=== PATIENT | female | born 2000 | race Caucasian/White ===

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

== ENCOUNTER 2019-05-12 13:43 | Emergency (ER) | payer MEDICAID, OTHER ==
--- OUTSIDE RECORDS SUMMARY | 2019-05-12 14:03 | XMS REPORT | Continuity of Care Document ---
:2000 External Reference #:[id number] Author Name Wander Alexander Care Team Providers Name Role Phone Radha Otero MD Primary Care Physician Unavailable Payers Date Identification Numbers Payment Provider Subscriber Policy Number: [id number] Camilo Mena Group Number: [id number] [address] PayID: [id number] [place] [address] Problems Active Problems Provider Date Nervus intermedius neuralgia Fer Maciel M.D. 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 Allergies, Adverse Reactions, Alerts Active Allergies Reaction Severity Comments Date Bactrim 04/24/2018 Inactive Allergies NKDA 07/07/2014 Medications Active Medications SIG Qnty Indications Ordering Provider Date Sumatriptan Succinate 1 tab twice a 9tabs G43.009 Fer Maciel, 2018 day max 2 days a M.D. 100mg Tablets week Lamotrigine 2 by mouth at 180tabs G50.0 Fer Maciel, 07/08/2014 25mg bedtime M.DSanchez Tablets Ibuprofen 2 tabs po prn Unknown 200mg Capsules Latasha Take One Tablet Unknown 0.15-30mg-mcg By Mouth Every Tablets Day History Medications Voltaren apply 2g to 100units T84.84xA Garry 08/21/2017 - 1% Gel affected area Irene Hale 04/23/2019 twice a day as needed Lidoderm apply strip to 3units T84.84xA Garry 08/15/2017 - 5% Patches incision daily Irene Hale 08/21/2017 Oxycodone HCL 1-2 tabs by 60tabs Garry 05/21/2017 - 5mg mouth every 4-6 Irene Hale 04/18/2018 Tablets hours as needed Nexplanon inserted Fer Marley 05/03/2017 - 68mg Irene Maciel 04/16/2018 Implant Oxycodone HCL 1-2 tabs po q4-6 60tabs Garry 10/18/2015 - 5mg hrs prn Irene Hale 01/18/2016 Tablets Carbamazepine 1 by mouth once 90units 350.1 Fer Marley 07/07/2014 - 100mg a day for 1 wk Irene Maciel 07/08/2014 Chewtabs then twice a day for 1 week then 1 three times a day Nuvaring insert 1 ring Unknown - vaginally every 07/03/2016 0.12-0.015mg/24HR 28 days leave in Ring place for 3 weeks, remove, and replace with a new ring after 7 day break for b Cleocin 1 [facility] Carlie Arreola - 100mg HAMZAH Jenkins 07/03/2016 Suppository Control Unknown - 08/14/2017 Vital Signs Date Vital Result Comment 04/24/2019 8:52am Weight 133.00 lb Heart Rate 60 /min BP Systolic Sitting 110 mmHg BP Diastolic Sitting 74 mmHg Respiratory Rate 24 /min no resp difficulties Pain Level 1 04/25/2018 8:50am Height 65 inches 5'5" Weight 125.00 lb Heart Rate 86 /min BP Systolic Sitting 114 mmHg BP Diastolic Sitting 68 mmHg Respiratory Rate 16 /min Pain Level 1 O2 % BldC Oximetry 98 % ra BMI (Body Mass Index) 20.8 kg/m2 Height Percentile 61 % Weight Percentile 4704/24/2018 12:09pm Height 65 inches 5'5" Weight 125.00 lb BP Systolic Sitting 104 mmHg BP Diastolic Sitting 60 mmHg Respiratory Rate 16 /min Pain Level 1 BMI (Body Mass Index) 20.8 kg/m2 Height Percentile 61 % Weight Percentile 47th 08/15/2017 11:55am Height 65 inches 5'5" Heart Rate 53 /min BP Systolic Sitting 108 mmHg BP Diastolic Sitting 68 mmHg Respiratory Rate 16 /min Pain Level 0 O2 % BldC Oximetry 98 % Blood Pressure Percentile 0 % Height Percentile 62 % 06/05/2017 10:18am Height 65 inches 5'5" Weight 125.00 lb BP Systolic 112 mmHg BP Diastolic 70 mmHg Respiratory Rate 18 /min Body Temperature 98.4 F Pain Level 0 BMI (Body Mass Index) 20.8 kg/m2 Blood Pressure Percentile 50 % Height Percentile 62 % Weight Percentile 5105/04/2017 9:06am Height 65 inches 5'5" Weight 125.00 lb Heart Rate 76 /min BP Systolic 122 mmHg BP Diastolic 79 mmHg Respiratory Rate 19 /min Body Temperature 97.5 F BMI (Body Mass Index) 20.8 kg/m2 Blood Pressure Percentile 83 % Height Percentile 62 % Weight Percentile 5205/03/2017 8:29am Height 65 inches 5'5" Weight 125.00 lb Heart Rate 58 /min BP Systolic Sitting 100 mmHg BP Diastolic Sitting 56 mmHg Respiratory Rate 20 /min Pain Level 5 O2 % BldC Oximetry 97 % BMI (Body Mass Index) 20.8 kg/m2 Blood Pressure Percentile 0 % Height Percentile 62 % Weight Percentile 52nd 07/04/2016 8:12am Height 65 inches 5'5" Weight 120.00 lb Heart Rate 66 /min BP Systolic 116 mmHg BP Diastolic 62 mmHg BMI (Body Mass Index) 20.0 kg/m2 Blood Pressure Percentile 63 % Height Percentile 63 % Weight Percentile 45th 04/10/2016 9:09am Height 65 inches 5'5" Weight 125.00 lb Heart Rate 56 /min BP Systolic Sitting 108 mmHg BP Diastolic Sitting 56 mmHg Respiratory Rate 16 /min BMI (Body Mass Index) 20.8 kg/m2 Blood Pressure Percentile 0 % Height Percentile 63 % Weight Percentile 56th 01/18/2016 9:04am Height 64 inches 5'4" Weight 120.00 lb Heart Rate 76 /min BMI (Body Mass Index) 20.6 kg/m2 Height Percentile 48 % Weight Percentile 48th 12/15/2015 1:22pm Height 64 inches 5'4" Weight 122.00 lb BMI (Body Mass Index) 20.9 kg/m2 Blood Pressure Percentile 0 % Height Percentile 48 % Weight Percentile 52nd 11/02/2015 10:51am Height 64 inches 5'4" Weight 122.00 lb Pain Level 3 BMI (Body Mass Index) 20.9 kg/m2 Height Percentile 49 % Weight Percentile 53rd 10/05/2015 8:48am Height 64 inches 5'4" Weight 122.00 lb Heart Rate 68 /min BP Systolic Sitting 110 mmHg BP Diastolic Sitting 68 mmHg BMI (Body Mass Index) 20.9 kg/m2 Blood Pressure Percentile 0 % Height Percentile 49 % Weight Percentile 53rd 08/17/2015 8:42am Heart Rate 70 /min BP Systolic Sitting 118 mmHg BP Diastolic Sitting 72 mmHg Blood Pressure Percentile 0 % 06/08/2015 9:34am Height 65 inches 5'5" Weight 105.00 lb Heart Rate 68 /min BP Systolic Sitting 118 mmHg BP Diastolic Sitting 70 mmHg BMI (Body Mass Index) 17.5 kg/m2 Blood Pressure Percentile 0 % Height Percentile 65 % Weight Percentile 05/20/2015 8:39am Height 65 inches 5'5" Weight 105.00 lb Heart Rate 60 /min BP Systolic Sitting 116 mmHg BP Diastolic Sitting 68 mmHg BMI (Body Mass Index) 17.5 kg/m2 Blood Pressure Percentile 0 % Height Percentile 65 % Weight Percentile 05/11/2015 8:27am Heart Rate 72 /min BP Systolic Sitting 118 mmHg BP Diastolic Sitting 76 mmHg Blood Pressure Percentile 0 % 04/27/2015 8:54am Heart Rate 70 /min BP Systolic Sitting 118 mmHg BP Diastolic Sitting 74 mmHg Blood Pressure Percentile 0 % 03/09/2015 11:24am Heart Rate 60 /min BP Systolic Sitting 98 mmHg BP Diastolic Sitting 62 mmHg Blood Pressure Percentile 0 % 02/23/2015 11:25am Heart Rate 76 /min BP Systolic Sitting 120 mmHg BP Diastolic Sitting 78 mmHg Blood Pressure Percentile 0 % 02/19/2015 8:24am Heart Rate 62 /min BP Systolic Sitting 104 mmHg BP Diastolic Sitting 76 mmHg Blood Pressure Percentile 0 % 01/08/2015 1:42pm Heart Rate 68 /min BP Systolic Sitting 100 mmHg BP Diastolic Sitting 68 mmHg Blood Pressure Percentile 0 % 12/25/2014 10:16am Height 65 inches 5'5" Heart Rate 58 /min BP Systolic Sitting 100 mmHg BP Diastolic Sitting 60 mmHg Blood Pressure Percentile 0 % Height Percentile 66 % 10/08/2014 1:00pm Height 65 inches 5'5" Heart Rate 54 /min BP Systolic Sitting 98 mmHg BP Diastolic Sitting 64 mmHg Blood Pressure Percentile 0 % Height Percentile 67 % 07/07/2014 1:24pm Height 65 inches 5'5" Weight 122.00 lb Heart Rate 56 /min BP Systolic Sitting 108 mmHg BP Diastolic Sitting 54 mmHg Respiratory Rate 16 /min BMI (Body Mass Index) 20.3 kg/m2 Blood Pressure Percentile 0 % Height Percentile 68 % Weight Percentile 61st 06/14/2012 3:06pm Height 64 inches 5'4" Weight 110.00 lb Heart Rate 72 /min BP Systolic 116 mmHg BP Diastolic 55 mmHg BMI (Body Mass Index) 18.9 kg/m2 Blood Pressure Percentile 73 % Height Percentile 74 % Weight Percentile 62nd Results Test Date Facility Test Result H/L Range Note Laboratory test 05/21/2017 [facility] Surgical SEE RESULT [address] [place] [address] [phone] Laboratory test 05/21/2017 [facility] (HCG) Negative N Negative [address] [place] [address] [phone] Laboratory test 10/18/2015 [facility] (HCG) Negative N Negative [address] Urine [place], [place] [id number] [phone] Laboratory test 10/17/2015 [facility] Cancellous SEE RESULTS 4, [address] Block BELO <[place] [address] NOTE> [phone] Semiten SEE RESULTS BELO <SEE NOTE> 6 1 SEE RESULT BELOW Name: SALTY MENA : [address]: Garry Hale MD Acct: [id number] Unit: [id number] AGE: 17 Location: OR Re05/21/17 SEX: F Status: DEP SDC SPEC: [id number] LENI: 05/21/17- [facility] DR: Garry Hale MD REQ: [id number] RECD: 05/21/17 STATUS: SOUT _ ORDERED: LEVEL 1 FINAL DIAGNOSIS Ankle, left, excision: Foreign body (orthopedic hardware) (Gross diagnosis). PRE-OPERATIVE DIAGNOSIS Painful hardware left ankle GROSS DESCRIPTION The specimen is received fresh labeled, Hardware Left Ankle/Foot, and consists of two green metallic elongated plates with multiple circular holes measuring 2.6 by up to 0.5 x 0.1 cm and 3.9 by up to 0.5 x 0.1 cm. The following inscriptions are identified, respectively: 131; [facility] [id number]. Received separately in the same container is a 6.5 by up to 0.7 cm silver metallic partially threaded Remy-headed screw. Also received are three green metallic threaded Remy-headed screws averaging 1.0 x 0.2 cm and five gold metallic threaded Remy-headed screws ranging from 1.2 x 0.2 cm to 2.1 x 0.2 cm the largest of which has been previously disrupted. Per established hospital medical staff protocol, no tissue is submitted. Gross only. Signed (signature on file) Estella Headley MD 1059 END OF REPORT * ML=Testing performed at Main Lab DEPARTMENT OF PATHOLOGY, [address] [place] [address] Johnathon Holliday M.D. Director [facility] # [id number] 2 If is still suspected, please repeat test after 48 to 72 hours. This test detects intact HCG only and is indicated for the early detection of . 3 If is still suspected, please repeat test after 48 to 72 hours. This test detects intact HCG only and is indicated for the early detection of . 4 SPRAIN OF OTHER LIGAMENT OF LEFT ANKLE, SEQUELA 5 SEE RESULTS BELOW [id number] CAN BLOCK TRANSFUSED 10/18/15711 6 SEE RESULTS BELOW [id number] SEMITEN TRANSFUSED 10/18/15711 Procedures Date Code Description Status 05/21/2017 Removal Implant Deep Wire,Screw Nail,John Or Plate Completed 05/21/2017 Removal Implant Deep Wire,Screw Nail,John Or Plate Completed 05/21/201742598 Removal Implant Deep Wire,Screw Nail,John Or Plate Completed 05/21/2017 Removal Implant Deep Wire,Screw Nail,John Or Plate Completed 05/03/2017 14677 Debridement Skin,& sq Tissue Completed 01/18/2016 81837 Rad Exam; Foot Limited Completed 11/30/2015 19696 Rad Exam; Foot Comp Completed 11/30/2015 44263 Walking Cast Completed 11/16/2015 40802 Short Leg Cast Completed 11/02/2015 28468 Short Leg Cast Completed 10/18/2015 14493 Repair Collateral Ligament Ankle, Secondary Completed 10/18/2015 51904 Repair Collateral Ligament Ankle, Secondary Completed 10/18/2015 46263 Osteotomy Calcaneus Lorie Or Juancho Type Procedure Completed 10/18/2015 24280 Osteotomy Calcaneus Lorie Or Juancho Type Procedure Completed 10/18/2015 53776 Osteotomy Tarsal Bones Completed 10/18/2015 34493 Osteotomy Tarsal Bones Completed 12/25/2014 85025 Rad Exam; Tib-Fib Completed 07/05/2012 82460 Rad Exam; Ankle Comp Completed 07/05/2012 05642 Short Leg Cast Completed 06/21/2012 57532 Short Leg Cast Completed 06/14/2012 32592 Short Leg Cast Completed 06/14/2012 54136 CLSD TX Distal Fib FX (Lateral Malleolus) w/o manipulation Completed Encounters Type Date Location Provider Dx Diagnosis Office Visit 04/25/2018 [place] Marley G50.0 Trigeminal 8:45a Neurologic Serv Of Irene Maciel neuralgia [facility] 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 internal AT [place] orthopedic prosth dev/tequila, incurtis M79.672 Pain in left foot Office Visit 05/03/2017 9:15a Orthopedic Carlos Nieto S93.601A Unspecified Services Of Shayla Saldaña MD sprain of right AT [place] foot, initial encounter S90.812A Abrasion, left foot, initial encounter Office Visit 05/03/2017 [place] G50.0 Trigeminal 8:30a Neurologic Serv Of Irene Maciel neuralgia [facility] Office Visit 07/04/2016 Orthopedic Services Garry M79.672 Pain in left 8:10a Of Shayla Hale M.D. foot Office Visit 04/10/2016 Neurohospitalist Fer Marley G50.0 Trigeminal 9:15a Clinic Irene Maciel neuralgia Office Visit 03/07/2016 Orthopedic Services Garry S93.492D Sprain of other 8:50a Of Shayla AT [place] Hale M.D. ligament of left ankle, subsequent encounter Office Visit 01/18/2016 Orthopedic Services Garry S93.492D Sprain of other 8:50a Of Shayla AT [place] Hale M.D. ligament of left ankle, subsequent encounter Office Visit 08/17/2015 Orthopedic Services Garry S93.492D Sprain of other 8:40a Of Shayla AT [place] Hale M.D. ligament of left ankle, subsequent encounter Office Visit 06/08/2015 Orthopedic Services Garry 845.09 Sprains & 9:40a Of Dental Mechanic AT [place] Hale M.D. Strains Ankle Other Office Visit 05/20/2015 [place]ash Leong.1 Neuralgia 8:45a Neurologic Serv Of Irene Maciel Trigeminal Dental Mechanic Office Visit 05/11/2015 Orthopedic Services Garry 845.00 Sprains & 8:20a Of Dental Mechanic AT [place]da Hale M.D. Strains Ankle Unspec Site Office Visit 04/27/2015 Orthopedic Services Garry 845.00 Sprains & 8:40a Of Dental Mechanic AT [place] Hale M.D. Strains Ankle Unspec Site 719.47 Pain Joint Ankle & Foot Office Visit 03/09/2015 11:20a Orthopedic Garry Hale 845.00 Sprains & Services Of Dental Mechanic AT [facility] Ankle [place] Unspec Site 719.47 Pain Joint Ankle & Foot Office Visit 02/23/2015 11:20a Orthopedic Garry Hale 845.00 [facility] V54.89 Aftercare, Orthopedic Other Office Visit 02/19/2015 8:30a Orthopedic Lilia Gonzalez 845.00 Sprains & Services Of Dental Mechanic AT .[facility] Ankle [place] Unspec Site 718.87 Derangement Joint Other Not Elsewhere Class Ankle & Foot Office Visit 01/08/2015 1:45p Orthopedic Lilia Gonzalez 845.00 Sprains & Services Of Dental Mechanic AT [facility] Ankle [place] Unspec Site 718.87 Derangement Joint Other Not Elsewhere Class Ankle & Foot Office Visit 12/25/2014 10:00a Orthopedic Lilia Gonzalez 845.00 Sprains & [facility] Unspec Site 719.47 Pain Joint Ankle & Foot Office Visit 10/08/2014 [place]ash Marley 350.1 Neuralgia 1:00p Neurologic Serv Of Irene Maciel Trigeminal Dental Mechanic Office Visit 07/07/2014 [place] Bhavin Leong.1 Neuralgia 1:00p Services Of Shayla Maciel M.D. Trigeminal Plan of Treatment Future Appointment(s):04/29/2020 8:30 am - Fer Maciel M.D. at [place]/ [place] Neurologic Serv Of [facility]04/24/2019 - Fer Maciel M.D.G50.0 Trigeminal qujlrfwvkK17.009 Migraine without aura, not intractable, without status migraNew Medication:Sumatriptan Succinate 100 mg - 1 tab twice a day max 2 days a week
[2019-05-12 14:24] VITALS: BP 119/63
--- NOTE | 2019-05-12 14:38 | UC ---
Ear Complaint HPI - HPI Summary HPI Summary: Pt presents with c/o right ear pain that began after swimming on 05/10/19. Pt states she woke this morning with right ear pain and tried to "clean her right ear" and had no improvement with pain. - History of Current Complaint Chief Complaint: UCEar Stated Complaint: RT EAR COMPLAINT Time Seen by Provider: 05/12/19 14:25 Hx Obtained From: Patient Hx Last Menstrual Period: 05/01/19 ?: No Onset/Duration: Sudden Onset, Lasting Hours, Still Present Severity Initially: Moderate Severity Currently: Moderate Pain Intensity: 6 Associated Signs/Symptoms: Positive: Hearing Loss - Allergies/Home Medications Allergies/Adverse Reactions: Allergies Allergy/AdvReac Type Severity Reaction Status Date / Time MS Latex [Latex] AdvReac Unknown Verified 05/12/19 14:18 Reaction Details PMH/Surg Hx/FS Hx/Imm Hx - Additional Past Medical History Additional PMH: reports hx of "ear problems" Previously Healthy: Yes - Surgical History Surgical History: Yes Surgery Procedure, Year, and Place: ear tubes X2. adnoids removed. left elbow surgery with pins and then removal of pins. 2015-left foot sx. - Family History Known Family History: Positive: Hypertension - Social History Occupation: Employed Full-time Lives: With Family Alcohol Use: Rare Substance Use Type: None Smoking Status (MU): Never Smoked Tobacco Have You Smoked in the Last Year: No - Immunization History Most Recent Influenza Vaccination: none Most Recent Pneumonia Vaccination: none Vaccination Up to Date: Yes Review of Systems All Other Systems Reviewed And Are Negative: Yes Constitutional: Positive: Negative Skin: Positive: Negative Eyes: Positive: Negative ENT: Positive: Ear Ache - right ear Respiratory: Positive: Negative Cardiovascular: Positive: Negative Gastrointestinal: Positive: Negative Genitourinary: Positive: Negative Motor: Positive: Negative Neurovascular: Positive: Negative Musculoskeletal: Positive: Negative Neurological: Positive: Negative Psychological: Positive: Negative Is Patient Immunocompromised?: No Physical Exam Triage Information Reviewed: Yes Appearance: Well-Appearing Vital Signs: Initial Vital Signs Temp 97.9 F 05/12/19 14:19 Pulse 65 05/12/19 14:19 Resp 15 05/12/19 14:19 BP 119/63 05/12/19 14:19 Pulse Ox 100 05/12/19 14:19 Vital Signs Reviewed: Yes Eye Exam: Normal ENT: Positive: Other - right ear canal, cerumen Dental Exam: Normal Neck exam: Normal Respiratory: Positive: No respiratory distress Musculoskeletal Exam: Normal Neurological Exam: Normal Psychological Exam: Normal Skin Exam: Normal Ear Complaint Course/Dx - Differential Dx/Diagnosis Differential Diagnosis/HQI/PQRI: Cerumen Impaction, URI Provider Diagnosis: Ear ache, Excessive cerumen in right ear canal Discharge - Sign-Out/Discharge Documenting (check all that apply): Patient Departure All imaging exams completed and their final reports reviewed: No Studies - Discharge Plan Condition: Stable Disposition: HOME Prescriptions: Neomyc/Polym/HC 1% OTIC SUSP* [Cortisporin Otic Susp 1%*] 2 drop RIGHT EAR Q6H 7 Days #1 btl Patient Education Materials: Earache (ED) Referrals: Radha Otero MD [Primary Care Provider] - If Needed - Billing Disposition and Condition Condition: STABLE Disposition: Home - Attestation Statements Provider Attestation: I was available for consult. This patient was seen by the LAN. The patient was not presented to, seen by, or examined by me. -Rola
== END 2019-05-12 14:54 | disposition home or self-care (01) ==
LOC: UCCORT 13:43
DX: H92.01 Otalgia, right ear (principal); H61.21 Impacted cerumen, right ear; Z91.040 Latex allergy status
CPT/HCPCS: 99213; G0463

== ENCOUNTER 2019-10-04 08:31 | Emergency (ER) | payer OTHER ==
[2019-10-04 08:47] VITALS: BP 110/48
--- NOTE | 2019-10-04 08:49 | UC ---
Complaint Female HPI - HPI Summary HPI Summary: 19 y/o female presents to the urgent care c/o burning with urination, w/ mild lower back pain for the past 2-3 days. She has History of many UTI's. Pt reports pain on urination is 6/10 and denies flank pain, fever, vaginal discharge. LMP: 09/25/2019 w/ regular menstrual cycles. Pt denies Hx of STD's, SOB ALEJANDRO dizziness, abdominal pain, pelvic pain, N/V/D. - History Of Current Complaint Chief Complaint: UCGU Stated Complaint: URINARY COMPLAINT Time Seen by Provider: 10/04/19 08:48 Hx Obtained From: Patient Hx Last Menstrual Period: 09/25/19 Onset/Duration: Gradual Onset, Lasting Days - 3 days, Still Present, Worse Since - today Timing: Intermittent Severity Initially: Mild Severity Currently: Moderate Pain Intensity: 5 Pain Scale Used: 0-10 Numeric Character: Burning Aggravating Factor(s): Urination Alleviating Factor(s): Nothing Associated Signs And Symptoms: Positive: Back Pain - mild lower back pain. Negative: Fever, Vaginal Bleeding/Discharge, Vaginal Discharge, Genital Swelling Related Hx: Similar Episode/Dx as: - UTI - Risk Factors Ectopic Risk Factor: Negative - Allergies/Home Medications Allergies/Adverse Reactions: Allergies Allergy/AdvReac Type Severity Reaction Status Date / Time gluten Allergy GI Upset Verified 10/04/19 08:41 latex Allergy Rash Verified 10/04/19 08:41 Home Medications: Home Medications Bcp 1 tab PO DAILY 10/04/19 [History] PMH/Surg Hx/FS Hx/Imm Hx Previously Healthy: Yes Respiratory History: Asthma - exercise induce asthma - Surgical History Surgical History: Yes Surgery Procedure, Year, and Place: ear tubes X2. adnoids removed. left elbow surgery with pins and then removal of pins. 2015-left foot sx.- and then removal of hardware - Family History Known Family History: Positive: Hypertension - Social History Occupation: Student Lives: With Family Alcohol Use: Rare Substance Use Type: None Smoking Status (MU): Never Smoked Tobacco Have You Smoked in the Last Year: No - Immunization History Most Recent Influenza Vaccination: none Most Recent Pneumonia Vaccination: none Vaccination Up to Date: Yes Review of Systems All Other Systems Reviewed And Are Negative: Yes Constitutional: Positive: Negative Skin: Positive: Negative Eyes: Positive: Negative ENT: Positive: Negative Respiratory: Positive: Negative Cardiovascular: Positive: Negative Gastrointestinal: Positive: Negative Genitourinary: Positive: Dysuria, Frequency, Urgency, Other - lower back pain Motor: Positive: Negative Neurovascular: Positive: Negative Musculoskeletal: Positive: Negative Neurological: Positive: Negative Psychological: Positive: Negative Is Patient Immunocompromised?: No Physical Exam - Summary Physical Exam Summary: VITAL SIGNS: Reviewed. GENERAL: Patient is a well developed and nourished female who is sitting comfortable in the examining table. Patient is not in any acute respiratory distress. HEAD AND FACE: No signs of trauma. No ecchymosis, hematomas or skull depressions. No sinus tenderness. EYES: PERRLA, EOMI x 2, No injected conjunctiva, clear watery eyes, no nystagmus. No photophobia. EARS: Hearing grossly intact. Ear canals and tympanic membranes are within normal limits. MOUTH: pharynx with no erythema, no exudates,no palatal petechiae. no B/L tonsillar enlargement Uvula in midline. NECK: Supple, trachea is midline, no lymphadenopathy, no JVD, no carotid bruit, no c-spine tenderness, neck with full ROM. CHEST: Symmetric, no tenderness at palpation LUNGS: Clear to auscultation bilaterally. No wheezing or crackles. CVS: Regular rate and rhythm, S1 and S2 present, no murmurs or gallops appreciated. ABDOMEN: Soft, non-tender. No signs of distention. No rebound no guarding, and no masses palpated. Bowel sounds are normal. BACK:no scoliosis or lesions, non tender to palpation, No B/L CVA tenderness EXTREMITIES: FROM in all major joints, no edema, no cyanosis or clubbing. NEURO: Alert and oriented x 3. No acute neurological deficits. Speech is normal and follows commands. SKIN: Dry and warm Triage Information Reviewed: Yes Vital Signs: Initial Vital Signs Temp 97.7 F 10/04/19 08:42 Pulse 68 10/04/19 08:42 Resp 16 10/04/19 08:42 BP 110/48 10/04/19 08:42 Pulse Ox 100 10/04/19 08:42 Complaint Female Dx - Course Course Of Treatment: 19 y/o female presents to the urgent care c/o burning with urination, w/ mild lower back pain for the past 2-3 days. She has History of many UTI's. Pt reports pain on urination is 6/10 and denies flank pain, fever, vaginal discharge. LMP: 09/25/2019 w/ regular menstrual cycles. Pt denies Hx of STD's, SOB ALEJANDRO dizziness, abdominal pain, pelvic pain, N/V/D. Hx obtained. PE: WNL. UA and test ordered. UA results: Blood 32+, Leukoesterase 1+. test: negative. Pt Rx Macrobid 100mg PO x 7 days. Pyridium 100mg PO TID x 2 days. Advised to increase fluid intake. Urine sent for culture if any abnormality Pt will be notified for further treatment. Pt advised If symptoms do not improve to return to the urgent care or f/u with PCP. Pt understood and agreed. Left the clinic ambulating. - Differential Dx/Diagnosis Differential Diagnosis/HQI/PQRI: Cervicitis, Pelvic Inflammatory Disease, , Renal Colic, Sexually Transmitted Disease, Ureteral Stone, Urinary Tract Infection Provider Diagnosis: UTI (urinary tract infection), Dysuria Discharge ED - Sign-Out/Discharge Documenting (check all that apply): Patient Departure - D/C home All imaging exams completed and their final reports reviewed: No Studies - Discharge Plan Condition: Stable Disposition: HOME Prescriptions: Fluconazole 150 MG TAB* [Diflucan 150 MG TAB*] 150 mg PO ONCE #1 tablet Nitrofurantoin Monohyd/M-Cryst [Macrobid 100 mg Capsule] 100 mg PO BID #14 cap Phenazopyridine TAB* [Pyridium 100 mg TAB*] 100 mg PO TID #6 tab Patient Education Materials: Urinary Tract Infection in Women (ED) Referrals: Shawnee Aranda MD [Primary Care Provider] - 3 Days Additional Instructions: 1- Please take Macrobid 100mg PO x 7 days. Pyridium 100 mg PO TID x 2 days to alleviate urinary symptoms. Increase increase fluid intake. drink cranberry juice. 2-Urine sent for culture if any abnormality, you will be notified for further treatment. 3-If symptoms do not improve please return to the urgent care or f/u with your PCP in 2-3 days for further management - Billing Disposition and Condition Condition: STABLE Disposition: Home
== END 2019-10-04 09:17 | disposition home or self-care (01) ==
LOC: UCCORT 08:31
DX: N39.0 Urinary tract infection, site not specified (principal); R30.0 Dysuria; J45.998 Other asthma; Z91.018 Allergy to other foods; Z91.040 Latex allergy status
CPT/HCPCS: 81003; 84702; 87086; 99212; G0463

== ENCOUNTER 2023-04-12 05:28 | Inpatient (IN) ==
[2023-04-12] MEDS ORDERED: ceFOXitin 2 GM PREMIX 50 ML IVPB ONE (06:00)
[2023-04-12] MEDS ORDERED: Lactated Ringers 1000 ml BAG 1,000 ML IV ONE (06:00)
[2023-04-12] MEDS ORDERED: Buffered Lidocaine 1% SYRIN 1 ml INTRADERM ONE (06:00)
[2023-04-12] MEDS ORDERED: Sodium Citrate/Citric Acid LIQ 15 ML UDC PO ONE (06:00)
[2023-04-12 06:38] LABS: ABS Eosinophils 0.1 10^3/uL (0.0-0.5); ABS Lymphocytes 2.8 10^3/uL (1.0-4.8); ABS Monocytes 0.7 10^3/uL (0.0-0.9); Hematocrit 33.6 % (35-45); Lymphocyte % 26.6 %; Mean Corpuscular Hemoglobin 23.3 pg (27-33); Mean Corpuscular Hgb Conc 32.7 g/dL (31-36); Mean Corpuscular Volume 71.4 fL (80-97); Platelet Count 283 10^3/uL (150-450); Red Cell Distribution Width 16.3 % (12-17); White Blood Count 10.7 10^3/uL (3.8-11.8)
[2023-04-12] MEDS ORDERED: Lactated Ringers 1000 ml BAG 1,000 ML IV SCH ×2 (07:00→10:00)
[2023-04-12] MEDS ORDERED: Ondansetron 4 mg VIAL 2 MG/ML 2 ml VIAL ONE (07:25)
[2023-04-12] MEDS ORDERED: Morphine PF AMP (0.5MG/ML) 5 MG/10 ML AMP ONE (07:25)
[2023-04-12] MEDS ORDERED: Oxytocin 10 UNITS/ML 1 ML VIAL ONE (07:25)
[2023-04-12] MEDS ORDERED: Phenylephrine 40 mcg/mL 10mL (400mcg) SYRINGE ONE (07:26)
[2023-04-12] MEDS ORDERED: Acetaminophen IV 1 GM/100ML 1,000 MG/100 ML BAG IV PRN (07:39)
[2023-04-12] MEDS ORDERED: Metoclopramide 5 MG/ML VIAL (10 mg) IV PRN (07:39)
[2023-04-12] MEDS ORDERED: Ondansetron 4 mg VIAL 2 MG/ML 2 ml VIAL IV PRN (07:39)
[2023-04-12] MEDS ORDERED: Naloxone 0.4 mg VIAL 0.4 mg/ml 1 ml VIAL IV PUSH PRN (07:39)
[2023-04-12] MEDS ORDERED: Bupivacaine-MPF SPINAL 7.5 MG/ML - 2ML AMP ONE (08:46)
[2023-04-12] MEDS ORDERED: Dibucaine 1% OINT 28.35 GM TUBE PR PRN (09:24)
[2023-04-12] MEDS ORDERED: Witch Hazel PAD JAR TOPICAL PRN (09:24)
[2023-04-12] MEDS ORDERED: Glycerin ADULT 2.4 gm SUPP PR PRN (09:24)
[2023-04-12] MEDS ORDERED: Oxytocin in LR 20,000 MILLI.UNIT/1,000 ML BAG IV SCH (09:30)
[2023-04-12 12:39] LABS: Urine Benzodiazepine Screen None Detected (None Detect); Urine Cannabinoids Screen None Detected (None Detect); Urine Opiates Screen None Detected (None Detect)
[2023-04-12 12:46] LABS: Urine Appearance Clear; Urine Bilirubin Negative (Negative); Urine Blood Negative (Negative); Urine Color Straw; Urine Glucose Negative (Negative); Urine Ketones Negative (Negative); Urine Nitrite Negative (Negative); Urine Protein Negative (Negative); Urine Specific Gravity 1.006 (1.002-1.030); Urine Urobilinogen Negative (Negative)
[2023-04-12 18:40] LABS: ABS Basophils 0.1 10^3/uL (0.0-0.1); ABS Lymphocytes 2.4 10^3/uL (1.0-4.8); ABS Monocytes 0.7 10^3/uL (0.0-0.9); ABS Neutrophils 11.5 10^3/uL (1.5-7.6); ABS Nucleated RBC 0.01 10^3/ul; Eosinophil % 0.3 %; Hematocrit 33.6 % (35-45); Hemoglobin 10.7 g/dL (11.5-14.3); Lymphocyte % 16.6 %; Mean Corpuscular Hemoglobin 22.4 pg (27-33); Mean Corpuscular Hgb Conc 31.8 g/dL (31-36); Mean Corpuscular Volume 70.5 fL (80-97); Mean Platelet Volume 8.6 fL (7.5-11.2); Platelet Count 238 10^3/uL (150-450); Red Blood Count 4.77 10^6/uL (3.63-4.92); Red Cell Distribution Width 15.8 % (12-17); White Blood Count 14.7 10^3/uL (3.8-11.8)
[2023-04-13 09:52] LABS: ABS Eosinophils 0.1 10^3/uL (0.0-0.5); ABS Lymphocytes 1.9 10^3/uL (1.0-4.8); ABS Monocytes 0.5 10^3/uL (0.0-0.9); ABS Neutrophils 9.6 10^3/uL (1.5-7.6); Eosinophil % 0.5 %; Hematocrit 32.9 % (35-45); Hemoglobin 10.5 g/dL (11.5-14.3); Lymphocyte % 15.7 %; Mean Corpuscular Hemoglobin 22.4 pg (27-33); Mean Corpuscular Hgb Conc 31.8 g/dL (31-36); Mean Corpuscular Volume 70.6 fL (80-97); Mean Platelet Volume 8.8 fL (7.5-11.2); Platelet Count 266 10^3/uL (150-450); Red Blood Count 4.66 10^6/uL (3.63-4.92); White Blood Count 12.1 10^3/uL (3.8-11.8)
[2023-04-14] MEDS ORDERED: Measles, Mumps,Rubella VACC 0.5 ML/VIAL SUBCUT ONE (11:00)
[2023-04-14] MEDS ORDERED: Varicella Virus Vaccine Live 0.5 ML VIAL SUBCUT ONE (11:00)
[2023-04-15 09:00] VITALS: BP 114/73
== END 2023-04-15 11:51 | disposition home or self-care (01) | DRG 540 ==
LOC: MCHOB 05:28
PROVIDERS: ADMIT Obstetrics & Gynecology; ATTEND Obstetrics & Gynecology